=== PATIENT | female | born 1965 | race Two or more races ===

== ENCOUNTER 2017-08-02 17:14 | Emergency (ER) | payer MEDICARE, MEDICAID ==
[~2017-08-02] VITALS: Ht 154.9 cm; Wt 55.0 kg
[2017-08-02 17:25] VITALS: BP 132/90
== END 2017-08-02 21:05 | disposition left against medical advice (07) ==
LOC: ER 17:25
DX: Z53.21 Procedure and treatment not carried out due to patient leaving prior to being seen by health care provider (principal)